=== PATIENT | male | born 1985 | race Caucasian/White ===

== ENCOUNTER → 2017-08-08 | Outpatient (CLI) | payer OTHER ==
--- NOTE | 2017-08-09 10:33 | ECHOF ---
Referral Reason:I35.1 Nonrheumatic aortic (valve) insufficiency MEASUREMENTS -------- HEIGHT: 175.3 cm WEIGHT: 88.5 kg BP: RVIDd: 2.5 cm (< 3.3) IVSd: 1.0 cm (0.6 - 1.1) LVIDd: 4.6 cm (3.9 - 5.3) LVPWd: 1.0 cm (0.6 - 1.1) IVSs: 1.3 cm LVIDs: 3.2 cm LVPWs: 1.4 cm LAESV Index (A-L): 16.42 ml/m Ao Diam: 3.8 cm (2.0 - 3.7) AV Cusp: 2.4 cm (1.5 - 2.6) LA Diam: 3.2 cm (2.7 - 3.8) MV EXCURSION: 15.618 mm (> 18.000) MV EF SLOPE: 104 mm/s (70 - 150) EPSS: 0.6 cm MV E Joesph: 0.80 m/s MV DecT: 223 ms MV A Joesph: 0.56 m/s MV E/A Ratio: 1.44 RAP: 5.00 mmHg RVSP: 7.97 mmHg FINDINGS -------- Sinus rhythm. This was a technically good study. The left ventricular size is normal. Left ventricular wall thickness is normal. Overall left vent ricular systolic function is normal with, an EF between 55 - 60 %. The right ventricle is normal in size and function. Normal LA size by volume 22+/-6 ml/m2. The right atrium is normal in size. The aortic valve is trileaflet, and appears structurally normal. No aortic stenosis or regurgitation. The mitral valve leaflets are mildly thickened. There is trace to mild mitral regurgitation. Poss ible MV chordal rupture on anterior leaflet. Trace tricuspid regurgitation present. Right ventricular systolic pressure is normal at < 35 mmHg. There is no evidence of pulmonary hypertension. The pulmonic valve is normal. The aortic root is dilated, limited to the sinuses of valsalva measuring up to 3.8 cm. Normal inferior vena cava with normal inspiratory collapse consistent with estimated right atrial pre ssure of 5 mmHg. There is no pericardial effusion. CONCLUSIONS -------- 1. Sinus rhythm. 2. This was a technically good study. 3. The left ventricular size is normal. 4. Left ventricular wall thickness is normal. 5. Overall left ventricular systolic function is normal with, an EF between 55 - 60 %. 6. Normal LA size by volume 22+/-6 ml/m2. 7. The aortic valve is trileaflet, and appears structurally normal. No aortic stenosis or regurgitati on. 8. The mitral valve leaflets are mildly thickened. 9. There is trace to mild mitral regurgitation. 10. Possible MV chordal rupture on anterior leaflet. 11. Trace tricuspid regurgitation present. 12. Right ventricular systolic pressure is normal at < 35 mmHg. 13. There is no evidence of pulmonary hypertension. 14. The aortic root is dilated, limited to the sinuses of valsalva measuring up to 3.8 cm. 15. There is no pericardial effusion. CHEF GERMAN: Bear Jones RDCS
== END | disposition home or self-care (01) ==
LOC: RADECHMAIN 16:20
PROVIDERS: ATTEND Family Medicine
DX: I34.0 Nonrheumatic mitral (valve) insufficiency (principal); I77.819 Aortic ectasia, unspecified site
CPT/HCPCS: 93306

== ENCOUNTER → 2018-07-02 | Outpatient (CLI) | payer OTHER ==
--- NOTE | 2018-07-02 08:10 | US ---
EXAMINATION TYPE: US abdomen complete DATE OF EXAM: 07/02/2018 COMPARISON: US, CT 2016 CLINICAL HISTORY: R10.9 Abdominal pain. EXAM MEASUREMENTS: Liver Length: 15.8 cm Gallbladder Wall: 0.2 cm CBD: 0.3 cm Spleen: 10.9 cm Right Kidney: 11.6 x 6.1 x 4.4 cm Left Kidney: 11.8 x 5.6 x 5.6 cm Pancreas: Obscured by bowel gas Liver: Increased attenuation Gallbladder: wnl Evidence for sonographic Arrieta's sign: No CBD: wnl Spleen: prominent size Right Kidney: No hydronephrosis or masses seen Left Kidney: No hydronephrosis or masses seen Upper IVC: wnl Abd Aorta: wnl The visualized liver is heterogeneously hyperechoic. The evaluation for focal masses is suboptimal du e to the heterogeneity. Findings are consistent with diffuse fatty infiltration. The intrahepatic por tion of the IVC and visualized portion of abdominal aorta are within normal limits. There is no evid ence of cholelithiasis. Common bile duct is unremarkable. The pancreas is suboptimally evaluated on images saved secondary to shadowing from overlying bowel gas. The spleen is unremarkable. Kidneys are symmetric and free of hydronephrosis. No renal lesions are seen. IMPRESSION: No acute finding identified to account for patient's symptoms. Fatty infiltration of live r felt present.
== END ==
LOC: RADUSWWP 07:21
PROVIDERS: ATTEND Family Medicine
DX: R10.9 Unspecified abdominal pain (principal)
CPT/HCPCS: 76700

== ENCOUNTER 2020-08-11 13:38 | Emergency (ER) | payer OTHER ==
[2020-08-11 13:43] VITALS: RESP 20; TEMP 97.8
[2020-08-11 14:35] LABS: Basophils % (A) 0 %; Eosinophils # (A) 0.1 k/uL (0-0.7); Eosinophils % (A) 1 %; HCT 49.2 % (39.0-53.0); HGB 17.7 gm/dL (13.0-17.5); Lymphocytes # (A) 0.9 k/uL (1.0-4.8); Lymphocytes % (A) 12 %; MCH 31.8 pg (25.0-35.0); MCHC 36.1 g/dL (31.0-37.0); MCV 88.2 fL (80.0-100.0); Mean Platelet Volume 7.3; Monocytes # (A) 0.3 k/uL (0-1.0); Monocytes % (A) 5 %; Neutrophils # (A) 6.1 k/uL (1.3-7.7); Neutrophils % (A) 81 %; Platelet Count 226 k/uL (150-450); RBC 5.57 m/uL (4.30-5.90); RDW 11.9 % (11.5-15.5); WBC 7.5 k/uL (3.8-10.6)
--- NOTE | 2020-08-11 14:37 | ED ---
Extremity Problem HPI - General Chief complaint: Extremity Problem,Nontraumatic Stated complaint: poss DVT rt calf Source: patient, RN notes reviewed Mode of arrival: ambulatory Limitations: no limitations - History of Present Illness Initial comments: 34-year-old male presents to emergency department from [facility] for concerns of possible DVT and right lower extremity. He notes that for approximately the last week his right calf has been tender on walking but better with rest. He does note that he does wear compression stockings at home due to in thinking is possibly lea splints. Patient states that pain is mild to moderate while walking but better with rest. He denied any history of clotting. He did note that he does have a history of Lyme disease back in 2011. He denied any other significant past medical history. He denied any chest pain shortness of breath headache nausea vomiting diarrhea constipation fever fatigue chills decreased strength range of motion weakness numbness tingling. - Related Data Home Medications Medication Instructions Recorded Confirmed Cats Paw Drops 1 drop PO DAILY 07/04/15 07/04/15 Cholecalciferol [Vitamin D3 (25 1,000 unit PO DAILY 07/04/15 07/04/15 Mcg = 1000 Iu)] Cyanocobalamin [Vitamin B-12] 500 mcg PO DAILY 07/04/15 07/04/15 Doxycycline Hyclate [Doryx] 200 mg PO BID 07/04/15 07/04/15 Multivitamins, Thera [Multivitamin 1 tab PO DAILY 07/04/15 07/04/15 (formulary)] Nystatin 500,000 units PO TID 07/04/15 07/04/15 prednisoLONE ACETATE [Pred Forte 1 drop RIGHT EYE DAILY 07/04/15 07/04/15 1%] Allergies Allergy/AdvReac Type Severity Reaction Status Date / Time morphine AdvReac Mild Itching Verified 08/11/20 13:43 Review of Systems ROS Statement: Those systems with pertinent positive or pertinent negative responses have been documented in the HPI. ROS Other: All systems not noted in ROS Statement are negative. Past Medical History Past Medical History: Hypertension Additional Past Medical History / Comment(s): lyme disease (initial dx 2011, had retreatment in January 2015. Same antibiotic with doxycycline. History of Any Multi-Drug Resistant Organisms: None Reported Past Surgical History: No Surgical Hx Reported Additional Past Surgical History / Comment(s): mole removed(benign), sx as child for undescened testicle, vasectomy Past Anesthesia/Blood Transfusion Reactions: No Reported Reaction Additional Past Anesthesia/Blood Transfusion Reaction / Comment(s): . Past Psychological History: Anxiety Smoking Status: Never smoker Past Alcohol Use History: Occasional Past Drug Use History: None Reported - Past Family History Father Additional Family Medical History / Comment(s): heart disease. both granfathers had heart disease one in his early 50's Mother Family Medical History: Mitral Valve Prolapse (MVP) General Exam Limitations: no limitations General appearance: alert, in no apparent distress Head exam: Present: atraumatic, normocephalic, normal inspection Eye exam: Present: normal appearance, PERRL, EOMI. Absent: scleral icterus, conjunctival injection, periorbital swelling Neck exam: Present: normal inspection. Absent: tenderness, meningismus, lymphadenopathy Respiratory exam: Present: normal lung sounds bilaterally. Absent: respiratory distress, wheezes, rales, rhonchi, stridor Cardiovascular Exam: Present: regular rate, normal rhythm, normal heart sounds. Absent: systolic murmur, diastolic murmur, rubs, gallop, clicks GI/Abdominal exam: Present: soft, normal bowel sounds. Absent: distended, tenderness, guarding, rebound, rigid Extremities exam: Present: normal inspection, full ROM, normal capillary refill, calf tenderness (Right calf and posterior right knee to moderate palpation). Absent: pedal edema, joint swelling Back exam: Present: normal inspection Neurological exam: Present: alert, oriented X3, CN II-XII intact Psychiatric exam: Present: normal affect, normal mood Skin exam: Present: warm, dry, intact, normal color. Absent: rash Course Vital Signs 08/11/20 13:39 Temperature 97.8 F Pulse Rate 108 H Respiratory 20 Rate Blood Pressure 188/92 O2 Sat by Pulse 98 Oximetry Medical Decision Making - Medical Decision Making 34-year-old male complaining of right calf pain and discomfort while walking. CBC, d-dimer, ultrasound of the right leg ordered. patient declined the need for any pain medication at this time as she was comfortable and was managing well on his own. Labs unremarkable, d-dimer negative. Ultrasound negative for DVT. Case discussed with Dr. Richard, patient can discharge home with follow-up to primary care. - Lab Data Result diagrams: 08/11/20 14:15 Lab Results 08/11/20 08/11/20 Range/Units 14:15 14:15 WBC 7.5 (3.8-10.6) k/uL RBC 5.57 (4.30-5.90) m/uL Hgb 17.7 H (13.0-17.5) gm/dL Hct 49.2 (39.0-53.0) % MCV 88.2 (80.0-100.0) fL MCH 31.8 (25.0-35.0) pg MCHC 36.1 (31.0-37.0) g/dL RDW 11.9 (11.5-15.5) % Plt Count 226 (150-450) k/uL MPV 7.3 Neutrophils % 81 % Lymphocytes % 12 % Monocytes % 5 % Eosinophils % 1 % Basophils % 0 % Neutrophils # 6.1 (1.3-7.7) k/uL Lymphocytes # 0.9 L (1.0-4.8) k/uL Monocytes # 0.3 (0-1.0) k/uL Eosinophils # 0.1 (0-0.7) k/uL Basophils # 0.0 (0-0.2) k/uL D-Dimer 0.19 (<0.60) mg/L FEU Disposition Clinical Impression: Right calf pain Disposition: HOME SELF-CARE Condition: Stable Instructions (If sedation given, give patient instructions): Leg Pain (ED) Additional Instructions: Please return to the Emergency Department if symptoms worsen or any other concerns. Follow-up with primary care in 3-5 days if symptoms persist. Discuss possible vascular consult for any vascular issues. Continue to wear compression stocking and rest it as much as possible. Can take tibn-[id number] anti-inflammatories for symptom control. Is patient prescribed a controlled substance at d/c from ED?: No Referrals: Kevin Davis MD [Primary Care Provider] - 1-2 days Time of Disposition: 15:57
--- NOTE | 2020-08-11 15:24 | US ---
EXAMINATION TYPE: US venous doppler duplex LE RT DATE OF EXAM: 08/11/2020 2:12 PM COMPARISON: NONE CLINICAL HISTORY: Right calf pain. Pt states right calf pain SIDE PERFORMED: Right TECHNIQUE: The lower extremity deep venous system is examined utilizing real time linear array sonog soha with graded compression, doppler sonography and color-flow sonography. VESSELS IMAGED: Common Femoral Vein Deep Femoral Vein Greater Saphenous Vein * Femoral Vein Popliteal Vein Small Saphenous Vein * Proximal Calf Veins (* superficial vessels) There is normal flow, compressibility, vascular waveforms. Right Leg: Negative for DVT IMPRESSION: No evident deep venous thrombosis at or above the right knee, follow-up as indicated in 2 4 to 48 hours
[2020-08-11 16:15] VITALS: BP 130/89; PULSE 93
== END 2020-08-11 16:15 | disposition home or self-care (01) ==
LOC: EC 13:38
DX: M79.661 Pain in right lower leg (principal); I10 Essential (primary) hypertension; Z79.899 Other long term (current) drug therapy; Z88.5 Allergy status to narcotic agent; Z86.19 Personal history of other infectious and parasitic diseases
CPT/HCPCS: 36415; 85025; 85379; 99284

== ENCOUNTER 2020-11-08 12:31 | Emergency (ER) | payer OTHER ==
[2020-11-08 12:33] VITALS: TEMP 98.8
--- NOTE | 2020-11-08 12:50 | ED ---
General Adult HPI - General Chief complaint: Abdominal Pain Stated complaint: Abdominal pain Time Seen by Provider: 11/08/20 12:37 Source: patient, RN notes reviewed Mode of arrival: ambulatory Limitations: no limitations - History of Present Illness Initial comments: Patient is a pleasant 35-year-old male presenting to the emergency department with complaints of right lower abdominal discomfort. Onset of symptoms was close to one week ago. Patient did have some discomfort in the right testicle/scrotum region however now is more in the lower abdomen. No dysuria or hematuria. No fever. Discomfort does not worsen with movement or positions. No history of similar symptoms previously. No nausea vomiting. - Related Data Home Medications Medication Instructions Recorded Confirmed Cats Paw Drops 1 drop PO DAILY 07/04/15 07/04/15 Cholecalciferol [Vitamin D3 (25 1,000 unit PO DAILY 07/04/15 07/04/15 Mcg = 1000 Iu)] Cyanocobalamin [Vitamin B-12] 500 mcg PO DAILY 07/04/15 07/04/15 Doxycycline Hyclate [Doryx] 200 mg PO BID 07/04/15 07/04/15 Multivitamins, Thera [Multivitamin 1 tab PO DAILY 07/04/15 07/04/15 (formulary)] Nystatin 500,000 units PO TID 07/04/15 07/04/15 prednisoLONE ACETATE [Pred Forte 1 drop RIGHT EYE DAILY 07/04/15 07/04/15 1%] Previous Rx's Medication Instructions Recorded Cyclobenzaprine [Flexeril] 10 mg PO TID PRN #12 tablet 11/08/20 Allergies Allergy/AdvReac Type Severity Reaction Status Date / Time morphine Allergy Mild Itching Verified 11/08/20 12:34 doxycycline Allergy Unknown Verified 11/08/20 12:34 Review of Systems ROS Statement: Those systems with pertinent positive or pertinent negative responses have been documented in the HPI. ROS Other: All systems not noted in ROS Statement are negative. Constitutional: Denies: fever Eyes: Denies: eye pain ENT: Denies: ear pain Respiratory: Denies: cough Cardiovascular: Denies: chest pain Endocrine: Denies: fatigue Gastrointestinal: Reports: as per HPI Genitourinary: Reports: as per HPI. Denies: urgency, dysuria, frequency, hematuria, testicular mass Musculoskeletal: Denies: back pain Skin: Denies: rash Neurological: Denies: weakness Past Medical History Past Medical History: Hypertension Additional Past Medical History / Comment(s): lyme disease (initial dx 2011, had retreatment in January 2015. Same antibiotic with doxycycline. History of Any Multi-Drug Resistant Organisms: None Reported Past Surgical History: No Surgical Hx Reported Additional Past Surgical History / Comment(s): mole removed(benign), sx as child for undescened testicle, vasectomy Past Anesthesia/Blood Transfusion Reactions: No Reported Reaction Additional Past Anesthesia/Blood Transfusion Reaction / Comment(s): . Past Psychological History: Anxiety Smoking Status: Never smoker Past Alcohol Use History: Occasional Past Drug Use History: None Reported - Past Family History Father Additional Family Medical History / Comment(s): heart disease. both granfathers had heart disease one in his early 50's Mother Family Medical History: Mitral Valve Prolapse (MVP) General Exam Limitations: no limitations General appearance: alert, in no apparent distress Head exam: Present: atraumatic Eye exam: Present: normal appearance Neck exam: Present: normal inspection Respiratory exam: Present: normal lung sounds bilaterally Cardiovascular Exam: Present: regular rate, normal rhythm GI/Abdominal exam: Present: soft, tenderness (Mild tenderness right lower quadrant). Absent: distended, hernia exam: Present: normal inspection. Absent: testicular tenderness, scrotal swelling Extremities exam: Present: normal inspection Neurological exam: Present: alert Psychiatric exam: Present: normal affect, normal mood Skin exam: Present: normal color Course Vital Signs 11/08/20 12:31 Temperature 98.8 F Pulse Rate 81 Respiratory 18 Rate Blood Pressure 155/98 O2 Sat by Pulse 98 Oximetry Medical Decision Making - Medical Decision Making Patient reevaluated and resting comfortably in bed. Patient updated on results and need for follow-up. Patient is receptive to try muscle relaxers. - Lab Data Result diagrams: 11/08/20 13:08 11/08/20 13:08 Lab Results 11/08/20 11/08/20 11/08/20 Range/Units 13:08 13:08 13:08 WBC 5.9 (3.8-10.6) k/uL RBC 5.38 (4.30-5.90) m/uL Hgb 17.2 (13.0-17.5) gm/dL Hct 47.0 (39.0-53.0) % MCV 87.4 (80.0-100.0) fL MCH 31.9 (25.0-35.0) pg MCHC 36.5 (31.0-37.0) g/dL RDW 11.9 (11.5-15.5) % Plt Count 209 (150-450) k/uL MPV 7.4 Neutrophils % 69 % Lymphocytes % 21 % Monocytes % 6 % Eosinophils % 2 % Basophils % 1 % Neutrophils # 4.1 (1.3-7.7) k/uL Lymphocytes # 1.3 (1.0-4.8) k/uL Monocytes # 0.4 (0-1.0) k/uL Eosinophils # 0.1 (0-0.7) k/uL Basophils # 0.0 (0-0.2) k/uL PT 10.1 (9.0-12.0) sec INR 0.9 (<1.2) APTT 23.3 (22.0-30.0) sec Sodium 140 (137-145) mmol/L Potassium 4.3 (3.5-5.1) mmol/L Chloride 106 (98-107) mmol/L Carbon Dioxide 27 (22-30) mmol/L Anion Gap 7 mmol/L BUN 16 (9-20) mg/dL Creatinine 0.91 (0.66-1.25) mg/dL Est GFR (CKD-EPI)AfAm >90 (>60 ml/min/1.73 sqM) Est GFR (CKD-EPI)NonAf >90 (>60 ml/min/1.73 sqM) Glucose 103 H (74-99) mg/dL Calcium 9.8 (8.4-10.2) mg/dL Total Bilirubin 2.0 H (0.2-1.3) mg/dL AST 23 (17-59) U/L ALT 21 (4-49) U/L Alkaline Phosphatase 53 (38-126) U/L Total Protein 6.9 (6.3-8.2) g/dL Albumin 4.4 (3.5-5.0) g/dL Amylase 60 (30-110) U/L Lipase 77 (23-300) U/L Urine Color Urine Appearance (Clear) Urine pH (5.0-8.0) Ur Specific [place] (1.001-1.035) Urine Protein (Negative) Urine Glucose (UA) (Negative) Urine Ketones (Negative) Urine Blood (Negative) Urine Nitrite (Negative) Urine Bilirubin (Negative) Urine Urobilinogen (<2.0) mg/dL Ur Leukocyte Esterase (Negative) 11/08/20 Range/Units 13:52 WBC (3.8-10.6) k/uL RBC (4.30-5.90) m/uL Hgb (13.0-17.5) gm/dL Hct (39.0-53.0) % MCV (80.0-100.0) fL MCH (25.0-35.0) pg MCHC (31.0-37.0) g/dL RDW (11.5-15.5) % Plt Count (150-450) k/uL MPV Neutrophils % % Lymphocytes % % Monocytes % % Eosinophils % % Basophils % % Neutrophils # (1.3-7.7) k/uL Lymphocytes # (1.0-4.8) k/uL Monocytes # (0-1.0) k/uL Eosinophils # (0-0.7) k/uL Basophils # (0-0.2) k/uL PT (9.0-12.0) sec INR (<1.2) APTT (22.0-30.0) sec Sodium (137-145) mmol/L Potassium (3.5-5.1) mmol/L Chloride (98-107) mmol/L Carbon Dioxide (22-30) mmol/L Anion Gap mmol/L BUN (9-20) mg/dL Creatinine (0.66-1.25) mg/dL Est GFR (CKD-EPI)AfAm (>60 ml/min/1.73 sqM) Est GFR (CKD-EPI)NonAf (>60 ml/min/1.73 sqM) Glucose (74-99) mg/dL Calcium (8.4-10.2) mg/dL Total Bilirubin (0.2-1.3) mg/dL AST (17-59) U/L ALT (4-49) U/L Alkaline Phosphatase (38-126) U/L Total Protein (6.3-8.2) g/dL Albumin (3.5-5.0) g/dL Amylase (30-110) U/L Lipase (23-300) U/L Urine Color Light Yellow Urine Appearance Clear (Clear) Urine pH 5.5 (5.0-8.0) Ur Specific [place] 1.010 (1.001-1.035) Urine Protein Negative (Negative) Urine Glucose (UA) Negative (Negative) Urine Ketones Negative (Negative) Urine Blood Negative (Negative) Urine Nitrite Negative (Negative) Urine Bilirubin Negative (Negative) Urine Urobilinogen <2.0 (<2.0) mg/dL Ur Leukocyte Esterase Negative (Negative) - Radiology Data Radiology results: report reviewed (Scrotal ultrasound shows no torsion or mass. Computed tomography scan of abdomen and pelvis shows no acute abnormality) Disposition Clinical Impression: Abdominal pain Disposition: HOME SELF-CARE Condition: Stable Instructions (If sedation given, give patient instructions): Abdominal Pain (ED) Additional Instructions: Please follow-up with primary care physician in the next day or 2 for recheck. Also follow-up with surgeon, number provided. Prescription has been sent to pharmacy. Return for increased pain, fever, vomiting, worsening symptoms or other concerns. Prescriptions: Cyclobenzaprine [Flexeril] 10 mg PO TID PRN #12 tablet PRN Reason: Pain Is patient prescribed a controlled substance at d/c from ED?: No Referrals: Kevin Davis MD [Primary Care Provider] - 1-2 days Corbin Mae DO [Doctor of Osteopathic Medicine] - 1-2 days Time of Disposition: 14:28
[2020-11-08 13:13] LABS: Basophils % (A) 1 %; Eosinophils # (A) 0.1 k/uL (0-0.7); Eosinophils % (A) 2 %; HGB 17.2 gm/dL (13.0-17.5); Lymphocytes # (A) 1.3 k/uL (1.0-4.8); Lymphocytes % (A) 21 %; MCH 31.9 pg (25.0-35.0); MCHC 36.5 g/dL (31.0-37.0); MCV 87.4 fL (80.0-100.0); Mean Platelet Volume 7.4; Monocytes # (A) 0.4 k/uL (0-1.0); Monocytes % (A) 6 %; Neutrophils # (A) 4.1 k/uL (1.3-7.7); Neutrophils % (A) 69 %; Platelet Count 209 k/uL (150-450); RBC 5.38 m/uL (4.30-5.90); RDW 11.9 % (11.5-15.5); WBC 5.9 k/uL (3.8-10.6)
[2020-11-08 13:23] LABS: ALT 21 U/L (4-49); AST 23 U/L (17-59); African American GFR (CKD) >90 (>60 ml/min/1.73 sqM); Albumin 4.4 g/dL (3.5-5.0); Alkaline Phosphatase 53 U/L (38-126); Amylase 60 U/L (30-110); Anion Gap 7 mmol/L; Blood Urea Nitrogen 16 mg/dL (9-20); Calcium 9.8 mg/dL (8.4-10.2); Carbon Dioxide 27 mmol/L (22-30); Chloride 106 mmol/L (98-107); Glucose 103 mg/dL (74-99); Lipase 77 U/L (23-300); Non-African American GFR(CKD) >90 (>60 ml/min/1.73 sqM); Potassium 4.3 mmol/L (3.5-5.1); Sodium 140 mmol/L (137-145); Total Protein 6.9 g/dL (6.3-8.2)
[2020-11-08 13:25] LABS: INR 0.9 (<1.2); Partial Thromboplastin Time 23.3 sec (22.0-30.0); Prothrombin Time 10.1 sec (9.0-12.0)
--- NOTE | 2020-11-08 14:05 | US ---
EXAMINATION TYPE: US scrotum with doppler. Grayscale and color Doppler Duplex imaging performed of delgado moreno scrotum. DATE OF EXAM: 11/08/2020 COMPARISON: NONE CLINICAL HISTORY: pain. Right scrotal pain x 1 week and now primarily in right groin and radiating to RLQ EXAM MEASUREMENTS: TESTICLES: homogeneous appearance to bilateral gland Right Testicle: 4.3 x 2.7 x 2.0 cm Left Testicle: 4.6 x 2.5 x 2.4 cm EPIDIDYMIS HEAD: Right Epididymis: 1.1 x 1.1x 0.9 cm Left Epididymis: 1.3 x 1.6 x 0.8 cm PW and Color Flow Doppler was performed to assess for testicular vascularity; good bilateral color fl ow and waveforms are seen. There is no evidence of testicular torsion. Presence of hydroceles: none seen Presence of varicoceles: in left scrotal sac as measures 3.9mm A/P in neutral and 3.7mm A/P with April burak ( abnormal is greater than or = to 2.5mm. ) At patient's area of pain in right groin no masses are seen by US. IMPRESSION: No testicular torsion or mass. There is evidence for left-sided varicocele. No hydrocele.
--- NOTE | 2020-11-08 14:13 | CT ---
EXAMINATION TYPE: CT abdomen pelvis w con DATE OF EXAM: 11/08/2020 COMPARISON: 07/06/2015 HISTORY: Right groin pain CT DLP: 922.1 mGycm Automated exposure control for dose reduction was used. CONTRAST: Performed with IV Contrast, patient injected with 100 mL of Isovue 300. Lung bases are clear. There is no pleural effusion. Heart size is normal. There is no pericardial eff usion. Liver spleen pancreas stomach appear intact. The bile ducts are not dilated. Gallbladder appears norm al. There is no adrenal mass. Kidneys show satisfactory contrast opacification. There is no hydronephrosi s. There is no retroperitoneal adenopathy. Appendix is posterior and appears normal. Bladder distends smoothly. There is no inguinal hernia. There is no free fluid in the pelvis. There is no mesenteric edema. There is no ascites or free air. There is no evidence of bowel obstruct ion. Delayed images show normal renal excretion. The ureters are not dilated. The lumbar vertebra have normal alignment. Disc spaces are fairly normal. There is no compression fra cture. The bony pelvis is intact. Hip joints appear normal. IMPRESSION: Negative CT scan abdomen and pelvis. Normal appendix. There is clearing of the infiltrate and atelect asis and pleural fluid at the lung bases compared to old exam.
[2020-11-08 14:14] LABS: Appearance,Urine Clear (Clear); Bilirubin,Urine Negative (Negative); Blood,Urine Negative (Negative); Color,Urine Light Yellow; Glucose,Urine (UA) Negative (Negative); Ketones,Urine Negative (Negative); Leukocyte Esterase,Urine Negative (Negative); Nitrite,Urine Negative (Negative); PH, Urine 5.5 (5.0-8.0); Protein,Urine Negative (Negative); Urobilinogen,Urine <2.0 mg/dL (<2.0)
[2020-11-08 15:20] VITALS: BP 141/102; PULSE 80; RESP 17
== END 2020-11-08 15:22 | disposition home or self-care (01) ==
LOC: EC 12:31
DX: R10.31 Right lower quadrant pain (principal); I10 Essential (primary) hypertension
CPT/HCPCS: 36415; 80053; 82150; 83690; 85025; 85610; 85730; 81003; 93975; 76870; 74177; 99284; Q9967

== ENCOUNTER 2023-10-31 12:34 | Emergency (ER) | payer BC ==
--- NOTE | 2023-10-31 13:22 | ED ---
Chest Pain HPI - General Chief Complaint: Chest Pain Stated Complaint: Neck/chest pain Time Seen by Provider: 10/31/23 13:15 Source: patient, RN notes reviewed, old records reviewed Mode of arrival: ambulatory Limitations: no limitations - History of Present Illness Initial Comments: This is a 38-year-old male to ER for evaluation of chest pain left-sided shoulder pain neck pain back pain left-sided neck pain left jaw pain muscular pain that has been going on for about a month. Patient has no fevers cough or congestion symptoms are all left-sided has been going on again for couple months despite treatment by primary care. MD Complaint: chest pain -: month(s) Pain Location: left chest Pain Radiation: LUE Severity: moderate Quality: aching, sharp Consistency: constant, intermittent Improves With: nothing Worsens With: nothing Anginal Symptoms: other (0) Other Symptoms: palpitations Treatments Prior to Arrival: none - Related Data Home Medications Medication Instructions Recorded Confirmed No Known Home Medications 10/31/23 10/31/23 Allergies Allergy/AdvReac Type Severity Reaction Status Date / Time morphine Allergy Mild Itching Verified 10/31/23 12:38 doxycycline AdvReac pancreatiti Verified 10/31/23 14:08 s Review of Systems ROS Statement: Those systems with pertinent positive or pertinent negative responses have been documented in the HPI. ROS Other: All systems not noted in ROS Statement are negative. EKG Findings - EKG Comments: EKG Findings:: EKG is sinus tachycardia 108 ND 143 QRS 87 QTc 359 - EKG Results: EKG: interpreted by ROXANNA Past Medical History Past Medical History: Hypertension Additional Past Medical History / Comment(s): lyme disease (initial dx 2011, had retreatment in January 2015. Same antibiotic with doxycycline. History of Any Multi-Drug Resistant Organisms: None Reported Past Surgical History: No Surgical Hx Reported Additional Past Surgical History / Comment(s): mole removed(benign), sx as child for undescened testicle, vasectomy Past Anesthesia/Blood Transfusion Reactions: No Reported Reaction Additional Past Anesthesia/Blood Transfusion Reaction / Comment(s): . Past Psychological History: Anxiety Smoking Status: Never smoker Past Alcohol Use History: Occasional Past Drug Use History: None Reported - Past Family History Father Additional Family Medical History / Comment(s): heart disease. both granfathers had heart disease one in his early 50's Mother Family Medical History: Mitral Valve Prolapse (MVP) General Exam Limitations: no limitations General appearance: alert, in no apparent distress Head exam: Present: atraumatic, normocephalic, normal inspection Eye exam: Present: normal appearance, PERRL, EOMI. Absent: scleral icterus, conjunctival injection, periorbital swelling ENT exam: Present: normal exam, mucous membranes moist Neck exam: Present: normal inspection. Absent: tenderness, meningismus, lymphadenopathy Respiratory exam: Present: normal lung sounds bilaterally. Absent: respiratory distress, wheezes, rales, rhonchi, stridor Cardiovascular Exam: Present: regular rate, normal rhythm, normal heart sounds. Absent: systolic murmur, diastolic murmur, rubs, gallop, clicks GI/Abdominal exam: Present: soft, normal bowel sounds. Absent: distended, tenderness, guarding, rebound, rigid Extremities exam: Present: normal inspection, full ROM, normal capillary refill. Absent: tenderness, pedal edema, joint swelling, calf tenderness Back exam: Present: normal inspection Neurological exam: Present: alert, oriented X3, CN II-XII intact Psychiatric exam: Present: normal affect, normal mood Skin exam: Present: warm, dry, intact, normal color. Absent: rash Course Vital Signs 10/31/23 10/31/23 12:35 16:02 Temperature 98 F 97.5 F L Pulse Rate 121 H 98 Respiratory 16 18 Rate Blood Pressure 144/93 127/89 O2 Sat by Pulse 98 100 Oximetry - Reevaluation(s) Reevaluation #1: 10/31/23 13:37 Medical records reviewed Reevaluation #2: Patient symptoms improved here in the ER. Reevaluation #3: Patient informed of results and questions answered Reevaluation #4: Was pt. sent in by a medical professional or institution (, PA, [employer], urgent care, hospital, or usp...) When possible be specific @ -no Did you speak to anyone other than the patient for history (EMS, parent, family, police, friend...)? What history was obtained from this source @ -no Did you review nursing and triage notes (agree or disagree)? Why? @ -agree Are old charts reviewed (outside hosp., previous admission, EMS record, old EKG, old radiological studies, urgent care reports/EKG's, usp records)? Report findings @ -yes Differential Diagnosis (chest pain, altered mental status, abdominal pain women, abdominal pain men, vaginal bleeding, weakness, fever, dyspnea, syncope, headache, dizziness, GI bleed, back pain, seizure, CVA, palpatations, mental health, musculoskeletal)? @ -prior EKG interpreted by me (3pts min.). @ -yes X-rays interpreted by me (1pt min.). @ -yes negative for acute disease CT interpreted by me (1pt min.). @ -Yes negative for acute disease U/S interpreted by me (1pt. min.). @ -no What testing was considered but not performed or refused? (CT, X-rays, U/S, labs)? Why? @ -none What meds were considered but not given or refused? Why? @ -none Did you discuss the management of the patient with other professionals (professionals i.e. , PA, [employer], lab, RT, psych nurse, 7th grade social studies teacher, undergraduate advisor, teacher, railroad police officer, case worker)? Give summary @ -no Was smoking cessation discussed for >3mins.? @ -no Was critical care preformed (if so, how long)? @ -no Were there social determinants of health that impacted care today? How? (Homelessness, low income, unemployed, alcoholism, drug addiction, transportation, low edu. Level, literacy, decrease access to med. care, longterm, rehab)? @ -none Was there de-escalation of care discussed even if they declined (Discuss DNR or withdrawal of care, Hospice)? DNR status @ -no What co-morbidities impacted this encounter? (DM, HTN, Smoking, COPD, CAD, Cancer, CVA, ARF, Chemo, Hep., AIDS, mental health diagnosis, sleep apnea, morbid obesity)? @ -none Was patient admitted / discharged? Hospital course, mention meds given and route, prescriptions, significant lab abnormalities, going to OR and other per tinent info. @ - 38 male to the ER for evaluation of chest pain neck pain. Pain going into his neck and left side of his face. Patient has no acute findings or symptoms here in the ER and can be discharged home Discharge Undiagnosed new problem with uncertain prognosis? @ -no Drug Therapy requiring intensive monitoring for toxicity (Heparin, Nitro, Insulin, Cardizem)? @ -no Were any procedures done? @ -no Diagnosis/symptom? @ -Chest pain neck pain Acute, or Chronic, or Acute on Chronic? @ -Acute Uncomplicated (without systemic symptoms) or Complicated (systemic symptoms)? @ -Complicated Side effects of treatment? @ -no Exacerbation, Progression, or Severe Exacerbation? @ -exacerbation Poses a threat to life or bodily function? How? (Chest pain, [place], [place], pneumonia, PE, COPD, DKA, ARF, appy, cholecystitis, CVA, Diverticulitis, Homicidal, Suicidal, threat to staff... and all critical care pts) @ -yes with history of chest pain yes negative for acute disease Reevaluation #5: Differential Chest Pain: Stable Angina, Unstable Angina, STEMI, NSTEMI Aortic Dissection, Pneumothorax, Musculoskeletal, Esophageal Spasm GERD, Cholecystitis, Pancreatitis, Zoster, this is not meant to be an all-inclusive list. Chest Pain MDM - MDM 38 male to the ER for evaluation of chest pain neck pain. Pain going into his neck and left side of his face. Patient has no acute findings or symptoms here in the ER and can be discharged home Disposition Clinical Impression: Neck pain, Cervical strain Disposition: HOME SELF-CARE Condition: Good Instructions (If sedation given, give patient instructions): Cervical Strain (ED), Cervical Sprain (ED), Neck Pain (ED) Is patient prescribed a controlled substance at d/c from ED?: No Referrals: Kevin Davis MD [Primary Care Provider] - 1-2 days Time of Disposition: 15:30
[2023-10-31] MEDS: KETOROLAC 15 MG/ML 1 ML VIAL IVP STA (13:38)
[2023-10-31] MEDS: SODIUM CHLORIDE 0.9% 1,000 ML IV STA (13:39)
[2023-10-31 13:42] LABS: Basophils % (A) 1 %; Eosinophils # (A) 0.1 k/uL (0-0.7); Eosinophils % (A) 1 %; HCT 52.1 % (39.0-53.0); HGB 17.9 gm/dL (13.0-17.5); Lymphocytes # (A) 1.4 k/uL (1.0-4.8); Lymphocytes % (A) 18 %; MCH 31.2 pg (25.0-35.0); MCHC 34.3 g/dL (31.0-37.0); MCV 90.9 fL (80.0-100.0); Mean Platelet Volume 7.4; Monocytes # (A) 0.4 k/uL (0-1.0); Monocytes % (A) 5 %; Neutrophils % (A) 74 %; Platelet Count 219 k/uL (150-450); RBC 5.73 m/uL (4.30-5.90); RDW 12.2 % (11.5-15.5); WBC 8.2 k/uL (3.8-10.6)
[2023-10-31 13:44] LABS: ALT 25 U/L (4-49); AST 28 U/L (17-59); African American GFR (CKD) >90 (>60 ml/min/1.73 sqM); Albumin 4.9 g/dL (3.5-5.0); Alkaline Phosphatase 56 U/L (38-126); Anion Gap 8 mmol/L; Blood Urea Nitrogen 22 mg/dL (9-20); Calcium 9.9 mg/dL (8.4-10.2); Carbon Dioxide 24 mmol/L (22-30); Chloride 106 mmol/L (98-107); Glucose 94 mg/dL (74-99); Lipase 80 U/L (23-300); Magnesium 2.2 mg/dL (1.6-2.3); Non-African American GFR(CKD) >90 (>60 ml/min/1.73 sqM); Potassium 4.6 mmol/L (3.5-5.1); Sodium 138 mmol/L (137-145); Total Bilirubin 3.4 mg/dL (0.2-1.3); Total Protein 7.7 g/dL (6.3-8.2)
[2023-10-31 13:48] LABS: Partial Thromboplastin Time 23.5 sec (22.0-30.0); Prothrombin Time 10.5 sec (10.0-12.5)
[2023-10-31 13:53] LABS: NT-Pro-B-Type Natriuretic Pept <20 pg/mL
--- NOTE | 2023-10-31 14:08 | XR ---
EXAMINATION TYPE: XR chest 1V portable DATE OF EXAM: 10/31/2023 1:38 PM CLINICAL INDICATION:Male, 38 years old with history of chest pain; COMPARISON: Chest radiographs from TECHNIQUE: XR chest 1V portable Frontal view of the chest. FINDINGS: Lungs/Pleura: There is no evidence of pleural effusion, focal consolidation, or pneumothorax. Pulmonary vascularity: Unremarkable. Heart/mediastinum: Cardiomediastinal silhouette is unremarkable. Musculoskeletal: No acute osseous pathology. IMPRESSION: No acute cardiopulmonary disease/process.
[2023-10-31] MEDS ORDERED: RX INFO: IV CONTRAST WAS GIVEN 1 EACH MISC MISCELLANE PRN (14:31)
--- NOTE | 2023-10-31 15:30 | CT ---
EXAMINATION TYPE: CT chest w con CT DLP: combined DLP of 924.9 mGycm, Automated exposure control for dose reduction was used. DATE OF EXAM: 10/31/2023 3:20 PM COMPARISON: 02/06/2015 CLINICAL INDICATION:Male, 38 years old with history of L neck,chest pain; PHH, pain that radiates. TECHNIQUE: Multiple axial images were obtained through the chest. Sagittal and coronal reformats were created for review. Contrast used:100ml mL of Isovue 300 with IV Contrast (None if empty) Oral contrast used: (None if empty) FINDINGS: LUNGS/ PLEURA: The lung parenchyma appears unremarkable. AIRWAY: Patent and unremarkable. HEART: Size within normal limits. MEDIASTINUM: No gross evidence of adenopathy. VASCULATURE: No aortic aneurysm. MUSCULOSKELETAL: No acute osseous abnormalities SOFT TISSUES/LYMPH NODES: Unremarkable. LOWER NECK: No significant findings. UPPER ABDOMEN: No significant findings. IMPRESSION: No evidence for acute process.
--- NOTE | 2023-10-31 15:33 | CT ---
EXAMINATION TYPE: CT soft tissue neck w con CT DLP: combined DLP of 924.9 mGycm, Automated exposure control for dose reduction was used. DATE OF EXAM: 10/31/2023 3:20 PM COMPARISON: Same day CT chest. CLINICAL INDICATION:Male, 38 years old with history of Lneck,chest pain; PHH, pain that radiates TECHNIQUE: Standard enhanced CT of the neck. Axial sections with coronal and sagittal reformats were obtained. Contrast used:100ml mL of Isovue 300 with IV Contrast, (None if empty) Oral contrast used: (None if empty) FINDINGS: Brain: Visualized portions are grossly unremarkable. Orbits: Unremarkable Sinuses: Grossly unremarkable. Spaces of the neck: Clear and symmetric. Musculoskeletal: No acute osseous pathology. Spinal canal appears patent. The neural foramen appear p atent. Lymph nodes: Multiple nonenlarged lymph nodes are seen along both anterior chains of the neck. Vascular structures: Visualized major arteries are patent without evidence of aneurysm. Thoracic Inlet/airway: Airway is patent. The lung apices are clear. Soft tissues/Thyroid: Thyroid and remainder of the soft tissues are unremarkable. Other: none. IMPRESSION No acute process. No finding to account for patient's pain. The spinal canal appears patent. The neur al foramen are patent. No mass identified.
[2023-10-31 16:03] VITALS: BP 127/89; PULSE 98; RESP 18; TEMP 97.5
== END 2023-10-31 16:03 | disposition home or self-care (01) ==
LOC: EC 12:34
DX: S16.1XXA Strain of muscle, fascia and tendon at neck level, initial encounter (principal); R00.0 Tachycardia, unspecified; Z88.5 Allergy status to narcotic agent; Z88.1 Allergy status to other antibiotic agents; X58.XXXA Exposure to other specified factors, initial encounter
CPT/HCPCS: 36415; 93005; 85379; 83880; 80053; 83690; 83735; 84484; 85025; 85610; 85730; 71045; 70491; 71260; 99285; 96374; 96361; J1885; Q9967